=== PATIENT | female | born 1995 | race Caucasian/White ===

== ENCOUNTER 2017-12-13 11:22 | Inpatient (IN) ==
[2017-12-13] MEDS ORDERED: Sod Chloride 0.9% Inj 1,000 ML IV.CONT PRN (12:02)
[2017-12-13] MEDS ORDERED: Sodium Chlor 0.9% Inj 500 ML IV.SIG PRN (12:02)
[2017-12-13] MEDS ORDERED: Naloxone Inj 0.4 MG/ML Vial IV.PUSH PRN (12:02)
[2017-12-13] MEDS ORDERED: fentaNYL Citrate Inj 100 MCG/2 ML Ampul IV.PUSH PRN ×2 (12:02)
--- NOTE | 2017-12-13 12:02 | P.HPOB ---
History of Present Illness Primary Care Physician: Justus Fisher, DO [facility] History of Present Illness: at 40wk5d, late to PNC, sent in from [facility] for decel on NST. Pt has been feeling irregular cxns. No LOF. No VB. +FM obhx: late to PNC at 31weeks PNL reviewed, WNL GBS negative high BP on 2 occasions? no medication needed, negative urine med hx: none surg hx: tonsillectomy wisdom teeth removal thigh lesion removal meds: PNV all: none - Inpatient Certification I certify that the inpatient services were ordered in accordance with Medicare regulations governing the order. This includes certification that hospital inpatient services are reasonable and necessary and in the case of services not specified as inpatient-only under 42 CFR 419.22(n), that they are appropriately provided as inpatient services in accordance to with the 2-midnight benchmark under 43 CFR 412.3(e) Review of Systems All other systems reviewed negative except as stated in HPI [facility] - Medical History Medical History: Medical History (Last Updated 11/04/17 @ 18:35 by Lavon Freeman MD) H/O wisdom tooth extraction - Surgical History Surgical History: Surgical History (Last Updated 11/04/17 @ 18:35 by Lavon Freeman MD) History of tonsillectomy - Tobacco History Smoking Status: Never smoker - Alcohol History How Often Do You Have a Drink Containing Alcohol: Never - Substance Use History Substance History: No History of Abuse - Travel History History of Recent Travel: No Medications and Allergies Allergies Allergy/AdvReac Type Severity Reaction Status Date / Time No Known Allergies Allergy Unverified 12/13/17 12:19 Home Medications Medication Instructions Recorded Confirmed Type PNV,calcium 72-iron,carb-folic 1 tab PO DAILY 09/13/17 09/13/17 History [ Plus] Exam Vital signs: Vital Signs 12/13/17 11:41 Temperature 98.3 F Pulse Rate 120 H Respiratory Rate 20 Blood Pressure 135/82 Narrative: FH: 40 FHR: category 1 tracing, baseline 140, + accels, no decels SVE: 1/50/-3, soft, posterior Results - Labs CBC & Chem 7: 12/13/17 11:40 12/13/17 12:40 Caprini VTE Risk Assessment Caprini VTE Risk Assessment: No/Low Risk (score <= 1) Caprini Risk Assessment Model: Point Value = 1 Point Value = 2 Point Value = 3 Point Value = 5 Age 41-60 Minor surgery BMI > 25 kg/m2 Swollen legs Varicose veins or History of unexplained or recurrent spontaneous Oral contraceptives or hormone replacement Sepsis (< 1 month) Serious lung disease, including pneumonia (< 1 month) Abnormal pulmonary function Acute myocardial infarction Congestive heart failure (< 1 month) History of inflammatory bowel disease Medical patient at bed rest Age 61-74 Arthroscopic surgery Major open surgery (> 45 min) Laparoscopic surgery (> 45 min) Malignancy Confined to bed (> 72 hours) Immobilizing plaster cast Central venous access Age >= 75 History of VTE Family history of VTE Factor V Leiden Prothrombin [id number] Lupus anticoagulant Anticardiolipin antibodies Elevated serum homocysteine Heparin-induced thrombocytopenia Other congenital or acquired thrombophilia Stroke (< 1 month) Elective arthroplasty Hip, pelvis, or leg fracture Acute spinal cord injury (< 1 month) Prophylaxis Regimen: Total Risk Factor Score Risk Level Prophylaxis Regimen 0-1 Low Early ambulation 2 Moderate Order ONE of the following: *Sequential Compression Device (SCD) *Heparin 5000 units SQ BID 3-4 Higher Order ONE of the following medications: *Heparin 5000 units SQ TID *Enoxaparin/Lovenox 40 mg SQ daily (WT < 150 kg, CrCl > 30 mL/min) *Enoxaparin/Lovenox 30 mg SQ daily (WT < 150 kg, CrCl > 10-29 mL/min) *Enoxaparin/Lovenox 30 mg SQ BID (WT < 150 kg, CrCl > 30 mL/min) AND/OR *Sequential Compression Device (SCD) 5 or more Highest Order ONE of the following medications: *Heparin 5000 units SQ TID (Preferred with Epidurals) *Enoxaparin/Lovenox 40 mg SQ daily (WT < 150 kg, CrCl > 30 mL/min) *Enoxaparin/Lovenox 30 mg SQ daily (WT < 150 kg, CrCl > 10-29 mL/min) *Enoxaparin/Lovenox 30 mg SQ BID (WT < 150 kg, CrCl > 30 mL/min) AND *Sequential Compression Device (SCD) Assessment and Plan - Diagnosis (1) 40 weeks gestation of Code(s): Z3A.40 - 40 weeks gestation of Status: Acute Plan: 40wks 5 days with unreassuring NST - admit to L&D for induction of labor - category 1 tracing, cont to monitor - /-, plan for cervadil placement (2) Elevated blood pressure reading in office without diagnosis of hypertension Code(s): R03.0 - Elevated blood-pressure reading, without diagnosis of hypertension Status: Acute Plan: high BP reading on 1-2 occasions in office? negative pre-eclamptic labs per pt - BP WNL on admission, cont to monitor - f/u CBC, CMP, UA
[2017-12-13] MEDS ORDERED: Oxytocin 30 Units/500ml Premix 30 UNITS/500 ML BAG IV.SIG ONE (12:15)
[2017-12-13] MEDS ORDERED: Citric Acid/Sodium Citrate Liq 30 ML UDC PO SCH (12:15)
[2017-12-13 12:30] LABS: Bacteria,Urine Moderate /hpf; Bilirubin,Urine Negative (Negative); Clarity,Urine Hazy (Clear); Color,Urine Straw (Yellw/Straw); Glucose,Urine (UA) Negative (Negative); Leukocyte Esterase,Urine Negative (Negative); Mucus,Urine Few /lpf (Occasional); Nitrite,Urine Negative (Negative); Specific Gravity,Urine 1.004 (1.002-1.035); Squamous Epithelial Cell,Urine 1 /hpf (0-5)
[2017-12-13 12:53] LABS: Baso % (Auto) 0.2 % (0.0-2.0); Eos % (Auto) 0.3 % (0.0-4.0); Hemoglobin 12.5 gm/dL (11.6-15.3); Lymph # (Auto) 1.8 th/mm3 (1.0-4.8); Lymph % (Auto) 20.2 % (9.0-44.0); Mean Corpuscular HGB Conc 32.8 % (32.0-36.0); Mean Corpuscular Hemoglobin 28.2 pg (27.0-34.0); Mean Corpuscular Volume 85.9 fL (80.0-100.0); Mean Platelet Volume 9.2 fL (7.0-11.0); Mono # (Auto) 0.7 th/mm3 (0.0-0.9); Mono % (Auto) 7.6 % (0.0-8.0); Neut # (Auto) 6.2 th/mm3 (1.8-7.7); Neut % (Auto) 71.7 % (16.0-70.0); Platelet Count 231 th/mm3 (150-450); Red Blood Count 4.42 mil/mm3 (4.00-5.30); Red Cell Distribution Width 14.4 % (11.6-17.2); White Blood Count 8.7 th/mm3 (4.0-11.0)
[2017-12-13 13:21] LABS: Alanine Aminotransferase 17 U/L (10-53); Albumin 2.9 g/dL (3.4-5.0); Anion Gap 11 meq/L (5-15); Aspartate Aminotransferase 18 U/L (15-37); Blood Urea Nitrogen 10 mg/dL (7-18); Calcium 8.7 mg/dL (8.5-10.1); Carbon Dioxide 24.2 meq/L (21.0-32.0); Chloride 105 meq/L (98-107); Glomerular Filtration Rate Greater Than 89 mL/min (>89); Glucose,Random 77 mg/dL (74-106); Potassium 3.9 meq/L (3.5-5.1); Sodium 140 meq/L (136-145)
[2017-12-13 13:24] LABS: Alkaline Phosphatase 157 U/L (45-117); Total Protein 7.4 g/dL (6.4-8.2)
[2017-12-13 13:30] LABS: Amphetamine Urine With Conf Neg (Neg); Benzodiazepine Urine With Conf Neg (Neg)
--- NOTE | 2017-12-13 17:56 | P.OBLABOR ---
Subjective Interval history: MD notified question of baseline of the heart. Patient and partner seen and counseled for artificial rupture of membranes possible placement of internal monitoring. AROM reveals light meconium. Continued monitoring reveals category 1 heart baseline is 120 reactive and reassuring. Objective Vital Signs: Vital Signs - 8 hr 12/13/17 11:41 12/13/17 12:30 12/13/17 13:30 Temperature 98.3 F Pulse Rate 120 H Respiratory Rate 20 18 18 Blood Pressure 135/82 12/13/17 13:47 12/13/17 14:00 12/13/17 15:00 Temperature Pulse Rate 87 Respiratory Rate 17 19 Blood Pressure 115/70 12/13/17 16:00 12/13/17 16:30 12/13/17 16:58 Temperature 98.1 F Pulse Rate 94 H Respiratory Rate 17 18 Blood Pressure 129/84 12/13/17 17:00 12/13/17 17:30 Temperature Pulse Rate Respiratory Rate 17 18 Blood Pressure Objective: Pelvic Exam: Cervix: [-] Dilatation: [-] Effacement: [-] Station: [-] Presentation: [-] Membranes: [intact or ruptured] Uterine Contractions: [-] FHT's: Category: [-] Baseline: [-] Reactive: [-] Variability: [-] Decels: [-] Assessment and Plan - Diagnosis (1) 40 weeks gestation of Code(s): Z3A.40 - 40 weeks gestation of Status: Acute Plan: 40wks 5 days with unreassuring NST - admit to L&D for induction of labor - category 1 tracing, cont to monitor - /-3, plan for cervadil placement (2) Elevated blood pressure reading in office without diagnosis of hypertension Code(s): R03.0 - Elevated blood-pressure reading, without diagnosis of hypertension Status: Acute Plan: high BP reading on 1-2 occasions in office? negative pre-eclamptic labs per pt - BP WNL on admission, cont to monitor - f/u CBC, CMP, UA
[2017-12-13] MEDS ORDERED: fentaNYL 2MCG-Bupiv 0.125% Epi 150 ML EPIDURAL ONE (19:22)
[2017-12-13] MEDS ORDERED: Lidocaine PF 1% Inj 10 ML Amp ONE (19:27)
[2017-12-13] MEDS ORDERED: Lidocaaine 1.5%/Epinephrine 1:200,000 PF Inj 5 ML Amp ONE (19:28)
[2017-12-13] MEDS ORDERED: Oxytocin 30 Units/500ml Premix 30 UNITS/500 ML BAG IV.CONT PRN (20:30)
[2017-12-13] MEDS: fentaNYL 2MCG-Bupiv 0.125% Epi 150 ML EPIDURAL PRN (21:24)
--- NOTE | 2017-12-13 21:44 | P.OBLABOR ---
Subjective Interval history: Patient is a 22-year-old at 40 weeks 5-day gestation admitted to labor and delivery due to 1 Decel noted during office visit with no benefit to prolong the . Patient currently doing well lying comfortably in bed. She was counseled on different positions and maneuvers in order to stimulate labor. Objective Vital Signs: Vital Signs - 8 hr 12/13/17 13:47 12/13/17 14:00 12/13/17 15:00 Temperature Pulse Rate 87 Respiratory Rate 17 19 Blood Pressure 115/70 12/13/17 16:00 12/13/17 16:30 12/13/17 16:58 Temperature 98.1 F Pulse Rate 94 H Respiratory Rate 17 18 Blood Pressure 129/84 12/13/17 17:00 12/13/17 17:30 12/13/17 18:30 Temperature 97.9 F Pulse Rate Respiratory Rate 17 18 Blood Pressure 12/13/17 18:45 12/13/17 19:10 12/13/17 19:25 Temperature Pulse Rate 99 H 96 H 93 H Respiratory Rate 15 Blood Pressure 111/70 118/62 12/13/17 19:30 12/13/17 19:35 12/13/17 19:40 Temperature Pulse Rate 108 H 118 H 95 H Respiratory Rate Blood Pressure 138/72 132/84 100/54 L 12/13/17 20:00 12/13/17 20:20 12/13/17 21:00 Temperature 98.5 F Pulse Rate 91 H 93 H 93 H Respiratory Rate 17 Blood Pressure 113/64 110/61 110/67 12/13/17 21:15 Temperature Pulse Rate 93 H Respiratory Rate Blood Pressure 105/75 Objective: Pelvic Exam: Cervix: Soft Dilatation: 4-5 Effacement: 80% Station: -2 Presentation: Vertex Membranes: Ruptured Uterine Contractions: Yes FHT's: Category: 1 Baseline: 120 Reactive: Yes Variability: Moderate Decels: None Assessment and Plan - Diagnosis (1) 40 weeks gestation of Code(s): Z3A.40 - 40 weeks gestation of Status: Acute Plan: Patient is a 22-year-old at 40 weeks 5-day gestation admitted to labor and delivery due to 1 Decel noted during office visit with no benefit to prolong the . Patient status post Cervidil insert at 1410 this afternoon. Patient currently at 4 cm with 80% effacement and -2 station. - category 1 tracing, cont to monitor -Continue routine care - /-2 (2) Elevated blood pressure reading in office without diagnosis of hypertension Code(s): R03.0 - Elevated blood-pressure reading, without diagnosis of hypertension Status: Acute Plan: high BP reading on 1-2 occasions in office? negative pre-eclamptic labs per pt, patient currently normotensive LFTs are within normal limits platelets are within normal limits. - BP WNL on admission, cont to monitor
[2017-12-13] MEDS ORDERED: Oxytocin 30 Units/500ml Premix 30 UNITS/500 ML BAG IV.SIG PRN (22:00)
--- NOTE | 2017-12-14 01:43 | P.OBLABOR ---
Subjective Interval history: Complains of urge to push Objective Vital Signs: Vital Signs - 8 hr 12/13/17 18:30 12/13/17 18:45 12/13/17 19:10 Temperature 97.9 F Pulse Rate 99 H 96 H Respiratory Rate 15 Blood Pressure 111/70 12/13/17 19:25 12/13/17 19:30 12/13/17 19:35 Temperature Pulse Rate 93 H 108 H 118 H Respiratory Rate Blood Pressure 118/62 138/72 132/84 12/13/17 19:40 12/13/17 20:00 12/13/17 20:20 Temperature 98.5 F Pulse Rate 95 H 91 H 93 H Respiratory Rate 17 Blood Pressure 100/54 L 113/64 110/61 12/13/17 21:00 12/13/17 21:15 12/13/17 21:30 Temperature Pulse Rate 93 H 93 H 90 Respiratory Rate Blood Pressure 110/67 105/75 110/70 12/13/17 21:45 12/13/17 22:00 12/13/17 22:15 Temperature 99.0 F Pulse Rate 98 H 85 71 Respiratory Rate 17 Blood Pressure 112/78 113/73 109/63 12/13/17 22:30 12/13/17 22:45 12/13/17 23:15 Temperature Pulse Rate 70 77 70 Respiratory Rate Blood Pressure 112/68 107/83 111/72 12/13/17 23:31 12/14/17 00:00 12/14/17 00:30 Temperature 98.5 F Pulse Rate 80 77 75 Respiratory Rate 15 Blood Pressure 104/66 96/66 L 106/71 12/14/17 00:46 12/14/17 01:00 12/14/17 01:15 Temperature Pulse Rate 68 78 87 Respiratory Rate Blood Pressure 99/57 L 108/71 116/71 12/14/17 01:30 Temperature Pulse Rate 106 H Respiratory Rate 18 Blood Pressure 132/77 Objective: Pelvic Exam: Cervix: Soft Dilatation: 8 Effacement: 90 Station: 0 Presentation: Vertex Membranes: Ruptured Uterine Contractions: Present FHT's: Category: 1 Assessment and Plan - Diagnosis (1) 40 weeks gestation of Code(s): Z3A.40 - 40 weeks gestation of Status: Acute Plan: Continue current plan
--- NOTE | 2017-12-14 05:04 | P.OBLABOR ---
Subjective Interval history: VE 9.5/100/0+1 FHR- Category 1 Catering Director on adequate pushing to effect delivery Objective Vital Signs: Vital Signs - 8 hr 12/13/17 21:15 12/13/17 21:30 12/13/17 21:45 Temperature Pulse Rate 93 H 90 98 H Respiratory Rate Blood Pressure 105/75 110/70 112/78 12/13/17 22:00 12/13/17 22:15 12/13/17 22:30 Temperature 99.0 F Pulse Rate 85 71 70 Respiratory Rate 17 Blood Pressure 113/73 109/63 112/68 12/13/17 22:45 12/13/17 23:15 12/13/17 23:31 Temperature Pulse Rate 77 70 80 Respiratory Rate Blood Pressure 107/83 111/72 104/66 12/14/17 00:00 12/14/17 00:30 12/14/17 00:46 Temperature 98.5 F Pulse Rate 77 75 68 Respiratory Rate 15 Blood Pressure 96/66 L 106/71 99/57 L 12/14/17 01:00 12/14/17 01:15 12/14/17 01:30 Temperature Pulse Rate 78 87 106 H Respiratory Rate 18 Blood Pressure 108/71 116/71 132/77 12/14/17 01:45 12/14/17 02:00 12/14/17 02:15 Temperature 98.5 F Pulse Rate 99 H 94 H 87 Respiratory Rate 15 Blood Pressure 125/73 121/76 117/66 12/14/17 02:30 12/14/17 02:45 12/14/17 03:00 Temperature Pulse Rate 90 101 H 102 H Respiratory Rate Blood Pressure 115/82 119/79 124/82 12/14/17 03:15 12/14/17 03:30 12/14/17 03:45 Temperature Pulse Rate 91 H 85 92 H Respiratory Rate Blood Pressure 119/75 127/72 123/70 12/14/17 03:56 12/14/17 04:00 12/14/17 04:15 Temperature 99.0 F Pulse Rate 108 H 116 H Respiratory Rate 18 Blood Pressure 130/89 131/75 12/14/17 04:46 Temperature Pulse Rate 116 H Respiratory Rate Blood Pressure 131/88 Objective: Pelvic Exam: Cervix: [-] Dilatation: [-] Effacement: [-] Station: [-] Presentation: [-] Membranes: [intact or ruptured] Uterine Contractions: [-] FHT's: Category: [-] Baseline: [-] Reactive: [-] Variability: [-] Decels: [-] Assessment and Plan - Diagnosis (1) 40 weeks gestation of Code(s): Z3A.40 - 40 weeks gestation of Status: Acute Plan: Continue current plan
[2017-12-14] MEDS: fentaNYL 2MCG-Bupiv 0.125% Epi 150 ML EPIDURAL PRN (05:05)
[2017-12-14] MEDS ORDERED: Lidocaine 1% Inj 50 ML Vial ONE (07:33)
[2017-12-14] MEDS ORDERED: Naloxone Inj 0.4 MG/ML Vial IV.PUSH PRN (08:19)
[2017-12-14] MEDS ORDERED: Witch Hazel 50%/Glyderin 12.5% 40 Pad Jar RECTAL PRN (08:19)
[2017-12-14] MEDS ORDERED: Acetaminophen 325 MG Tablet PO PRN (08:19)
[2017-12-14] MEDS ORDERED: Oxytocin 30 Units/500ml Premix 30 UNITS/500 ML BAG IV.CONT PRN (08:19)
[2017-12-14] MEDS ORDERED: Bisacodyl 10 MG Supp RECTAL PRN (08:19)
[2017-12-14] MEDS ORDERED: Benzocaine 20% Top Spray 60 ML Can TOPICAL PRN (08:19)
[2017-12-14] MEDS ORDERED: Zolpidem Tartrate 5 MG Tablet PO PRN (08:19)
--- NOTE | 2017-12-14 08:19 | P.OBDELI ---
Weeks Gestation: 40 Patient Started Active Labor: Yes Medical Induction of Labor: Yes (IOL) Medical Induction Start Date: 12/13/17 Medical Induction Start Time: 14:00 Artificial Rupture of Membrane: Yes Anesthesia: Epidural Episiotomy: none Vaginal Delivery: Normal, Spontaneous Presentation: Occiput anterior Nuchal Cord: None Delayed Cord Clamping (45 sec): Yes Placenta: Spontaneous delivery Laceration: Vaginal, 1 deg Repair: Chromic interrupted (figure of 8 x 2) Estimated blood loss (mL): 100 Infant: Female Additional Information: Attending OB hospitalist present for delivery and supervision of resident
[2017-12-14] MEDS: Prenatal Vit/Ca/Iron/Folic Acid Tablet PO SCH (09:30)
[2017-12-14] MEDS: Senna/Docusate Sodium 8.6/50 MG Tablet PO SCH ×2 (09:33→21:00)
[2017-12-14] MEDS ORDERED: Diphtheria/Tetanus/Pertussis Vaccine Inj 0.5 ML Syringe IM ONE (16:00)
[2017-12-14] MEDS ORDERED: Measles/Mumps/Rubella Vaccine Inj 0.5 ML Vial SQ ONE (16:00)
--- NOTE | 2017-12-15 08:06 | P.PNOB ---
Subjective Post day: 1 Interval history: Patient is a 22-year-old delivered at 40 weeks and 5 days. Patient is day 1 after induced vaginal delivery. Patient was late to care. Patient's pain is well-controlled. Patient reports eating and drinking without any nausea or vomiting. Patient reports minimal bleeding. Patient has passed gas and had one bowel movement since delivery. Patient is walking without calf pain or shortness of breath. She reports pain on her inner thigh. Patient reports desire for contraception but is still contemplating method. Patient reports that she is extremely tired this morning and finds it difficult to rest in the hospital. Objective Vital Signs/I&O: Vital Signs 12/14/17 08:13 12/14/17 08:15 12/14/17 08:30 Temperature Pulse Rate 95 H 99 H 93 H Respiratory Rate 18 Blood Pressure 120/66 125/58 L 119/71 12/14/17 08:42 12/14/17 08:46 12/14/17 09:08 Temperature 99.0 F Pulse Rate 76 85 Respiratory Rate 18 18 Blood Pressure 104/58 L 111/82 12/14/17 09:15 12/14/17 09:26 12/14/17 09:30 Temperature Pulse Rate 69 101 H Respiratory Rate 18 Blood Pressure 112/72 105/71 12/14/17 10:30 12/14/17 20:00 Temperature 97.9 F 98.1 F Pulse Rate 78 89 Respiratory Rate 20 18 Blood Pressure 117/64 99/69 L Result Diagrams: 12/13/17 11:40 12/13/17 12:40 Objective Remarks: GENERAL: Well-nourished, well-developed patient. CARDIOVASCULAR: Regular rate and rhythm without murmurs, gallops, or rubs. RESPIRATORY: Breath sounds equal bilaterally. No accessory muscle use. ABDOMEN/GI: Abdomen soft, non-tender. Fundus: Firm, non-tender at umbilicus. GENITOURINARY: Light to moderate bleeding. EXTREMITIES: No cyanosis or edema, non-tender, without signs of DVT. Medications and IVs: Active Medications Acetaminophen (Tylenol) 650 mg PO Q4H PRN PRN Reason: PAIN SCALE 1 TO 2 Al Hydroxide/Mg Hydroxide (Milk Of Magnesia Liq) 30 ml PO Q12H PRN PRN Reason: Mild Constipation Benzocaine (Americaine 20% Top [place]) 1 spray TOPICAL Q4H PRN PRN Reason: For Perineum Discomfort Last Admin: 12/14/17 09:28 Dose: 1 spray Bisacodyl (Dulcolax Supp) 10 mg RECTAL DAILY PRN PRN Reason: SEVERE CONSITIPATION Citric Acid/Sodium Citrate (Sodium Citrate/Citric Acid Liq) 30 ml PO OXYGEN THERAPIST [facility] Stop: 12/17/17 12:14 Fentanyl Citrate (Fentanyl Inj) 50 mcg IV.PUSH Q1H PRN PRN Reason: Pain Scale 3 - 5 Fentanyl Citrate (Fentanyl Inj) 100 mcg IV.PUSH Q1H PRN PRN Reason: PAIN SCALE 6 TO 10 Lactated Ringer's (Lr 1000 Ml Inj) 1,000 mls @ 125 mls/hr IV.CONT .Q8H [facility] Last Admin: 12/15/17 06:47 Dose: Not Given Lactated Ringer's (Lr 1000 Ml Inj) 1,000 mls @ 3,000 mls/hr IV.SIG UNSCH PRN PRN Reason: compromise or epidural Last Admin: 12/13/17 14:11 Dose: 3,000 mls/hr Sodium Chloride (Ns Inj) 1,000 mls @ 100 mls/hr IV.CONT .Q10H PRN PRN Reason: SEE LABEL COMMENTS Sodium Chloride (Ns Inj) 500 mls @ 1,000 mls/hr IV.SIG UNSCH PRN PRN Reason: SEE LABEL COMMENTS Fentanyl/Bupivacaine/Sodium Chlor (Fentanyl 2 Mcg-Bupiv 0.125% Epi) 150 mls @ 12 mls/hr EPIDURAL PRN PRN PRN Reason: for Labor Pain Last Admin: 12/14/17 05:05 Dose: 12 mls/hr Oxytocin (Pitocin 30 Units/Ns 500 Ml Premix) 30 units in 500 mls @ 2 mls/hr IV.SIG TITRATE PRN; Protocol PRN Reason: For induction of labor Last Admin: 12/13/17 21:24 Dose: 2 milliunit/min, 2 mls/hr Oxytocin (Pitocin 30 Units/Ns 500 Ml Premix) 30 units in 500 mls @ 100 mls/hr IV.CONT UNSCH PRN PRN Reason: Heavy bleeding Ibuprofen (Motrin) 800 mg PO Q8H PRN PRN Reason: For Cramping Last Admin: 12/15/17 05:02 Dose: 800 mg Lactulose (Lactulose Liq) 30 ml PO DAILY PRN PRN Reason: SEVERE CONSITIPATION Lidocaine HCl (Xylocaine 1% Inj) 0.1 ml I-DERMAL PRN PRN PRN Reason: For IV start Stop: 12/16/17 12:01 Lidocaine HCl (Xylocaine 1% Inj) 10 ml INFILTRATN PRN PRN PRN Reason: For episiotomy repair Stop: 12/15/17 12:01 Mineral Oil (Muri-Lube Oil) 10 ml TOPICAL UNSCH PRN PRN Reason: PRN perineal massage Last Admin: 12/14/17 09:00 Dose: 10 ml Naloxone HCl (Narcan Inj) 0.1 mg IV.PUSH Q2M PRN PRN Reason: for opiate reversal Ondansetron HCl (Zofran Odt) 4 mg PO Q6H PRN PRN Reason: NAUSEA OR VOMITING Vit/Calcium/Iron/Folic Ac (Stuartnatal Plus 3) 1 tab PO DAILY [facility] Last Admin: 12/14/17 09:30 Dose: Not Given Senna/Docusate Sodium (Aicha-Colace) 1 tab PO BID [facility] Last Admin: 12/14/17 21:00 Dose: 1 tab Sennosides (Senokot) 17.2 mg PO Q12H PRN PRN Reason: Moderate Constipation Sodium Chloride (Ns Flush) 2 ml IV.FLUSH BID [facility] Last Admin: 12/15/17 03:36 Dose: Not Given Sodium Chloride (Ns Flush) 2 ml IV.FLUSH UNSCH PRN PRN Reason: FLUSH AFTER USING IV ACCESS Witch Kaia/Glycerin (Tucks Pads) 1 applicatio RECTAL QID PRN PRN Reason: HEMORRHOIDS Last Admin: 12/14/17 09:29 Dose: 1 applicatio Zolpidem Tartrate (Ambien) 5 mg PO HS PRN PRN Reason: SLEEP Assessment and Plan - Diagnosis (1) Normal course Code(s): Z39.2 - Encounter for routine follow-up Status: Acute - Plan Patient is a 22-year-old delivered at 40 weeks and 5 days. Patient is day 1 after IVD. Patient was counseled to do 6 weeks of pelvic rest. Patient was counseled to follow up in 6 weeks. --AF VSS --Continue routine care --Motrin and Percocet when necessary for pain --Encourage OOB --Pelvic rest for 6 weeks will need follow-up appointment at that time. --Contraception: Patient still contemplating --Anticipate discharge this afternoon or tomorrow, but due to late care the pediatrics team may want to keep baby for a full 48 hours.
[2017-12-15 09:00] VITALS: BP 101/63; PULSE 94; RESP 16; TEMP 97.8
[2017-12-15] MEDS: Prenatal Vit/Ca/Iron/Folic Acid Tablet PO SCH (15:01)
[2017-12-15] MEDS: Senna/Docusate Sodium 8.6/50 MG Tablet PO SCH (15:01)
== END 2017-12-15 17:01 | disposition home or self-care (01) ==
LOC: HOBED 11:22 → H2E 11:40 → H1EA 12-14 10:18
PROVIDERS: ADMIT Obstetrics & Gynecology; ATTEND Obstetrics & Gynecology